=== PATIENT | female | born 1930 | race Caucasian/White ===

== ENCOUNTER 2018-05-08 00:07 | Outpatient (CLI) | payer MEDICARE ==
[~2018-05-08] VITALS: Ht 154.9 cm; Wt 55.8 kg
[2018-05-08] VITALS (12 sets, daily range): BP systolic 101–152; BP diastolic 33–73; Ht 154.9 cm; Wt 55.8 kg
--- NOTE | ~2018-05-08 | OP ---
PATIENT NAME: JOSE FRENCH MEDICAL RECORD: [id number] :[birth year] LOCATION:D.M2 D.2139 ADMISSION DATE:05/08/18 SURGEON: MONI BRANDON MD DATE OF OPERATION: 05/08/2018 PROCEDURES: 1. PTCA stent LAD. 2. Left heart catheterization. 3. Selective coronary angiography. 4. Left ventriculogram. INDICATION: Unstable angina and coronary artery disease. PROCEDURE IN DETAIL: After informed consent was obtained and after a detailed description of risks, benefits as well as alternative therapies, the patient elected to proceed with angiogram and angioplasty. The right radial area was prepped and draped in normal sterile fashion. The right radial artery cannulated via modified Seldinger technique with placement of 6-Niuean sheath. All catheters exchanged through this sheath. FINDINGS: The left ventriculogram was performed in standard 30-degree RESTREPO view, reveals good cardiac wall motion throughout all segments. Overall ejection fraction estimated 60%. SELECTIVE CORONARY ANGIOGRAPHY: 1. Left main is with no significant angiographic disease. 2. Left anterior descending has 90% stenosis in the mid vessel. 3. Left circumflex has 50% to 70% stenosis in the mid vessel. 4. Right coronary has moderate irregularities, but no flow-limiting stenosis. PTCA stent of the LAD: The stent used was a 3.0 x 15 mm Integrity. Result was 0% residual stenosis. OVERALL IMPRESSION: Successful percutaneous transluminal coronary angioplasty stent of the left anterior descending going from 90% initial stenosis to 0% residual. TRANSINT:[id number] Voice Confirmation ID: [id number] DOCUMENT ID: [id number] MONI BRANDON MD at 1834 CC: [id number] DICTATION DATE: 05/08/18 1436 UNDERWEAR FINISHER: 05/08/18 1526 ADM IN [place] [id number] [place] [address]
--- NOTE | ~2018-05-08 | DS ---
PATIENT:JOSE BURNETT :[birth year] MEDICAL RECORD: [id number] DISCHARGE SUMMARY ADMISSION DATE: 05/08/18 DISCHARGE DATE: 05/09/18 DIAGNOSES: 1. Angina. 2. Coronary artery disease. 3. Percutaneous transluminal coronary angioplasty and stent left anterior descending this admission. HOSPITAL COURSE: Ms. Burnett presents with unstable anginal symptomatology, found to have single-vessel disease to the LAD, underwent successful PTCA and stent of the LAD, was discharged home with the addition of aspirin and Plavix to her medical regimen. Follow up with [facility] in 1 month. TRANSINT:[id number] Voice Confirmation ID: [id number] DOCUMENT ID: [id number] MONI BRANDON MD at 1642 CC: [id number] DICTATION DATE: 05/09/18 1106 LEAD SOFTWARE ARCHITECT: 05/09/18 1231 DEP CLI 05/09/18 [id number] [place] [address]
--- NOTE | ~2018-05-08 | HEMODYNAMI ---
PATIENT:JOSE FRENCH MEDICAL RECORD: [id number] : [birth year] LOCATION:[facility] D.2139 ADMISSION DATE: 05/08/18 Generatedon:05/08/201814:38 Patient name: JOSE FRENCH Patient #: [id number] SSN: : Date of study: 05/08/2018 Page: Of Hemodynamic Procedure Report Patient Data Patient Demographics Procedure consent was obtained First Name: JOSE Gender: Female Last Name: MANOLO : 1930 Middle Initial: E Age: 87 year(s) Patient #: [id number] Race: Unknown Additional ID: [id number] Contact details Address: [address] [place] [address] State: [place] City: [place] Zip code: [address] Past Medical History Allergies Allergen Reaction Date Comments Reported Other allergy 05/08/2018 sulfa Admission Admission Data Admission Date: 05/08/2018 Admission Time: 3:02 Admit Source: Other Room #: D2139 Procedure Procedure Types Cath Procedure Diagnostic Procedure [facility] w/Coronaries PCI Procedure Coronary Stent Coronary Stent Initial Procedure Description Procedure Date Procedure Date: 05/08/2018 Procedure Start Time: 14:18 Procedure End Time: 14:32 Procedure Staff Name Function Syl Alfonso RT Scrub Frankie Stout RN Nurse Romel Andrade RN Nurse Rogerio Jade MD Performing Physician Aleja Mills RT Monitor Procedure Data Cath Procedure Fluoroscopy Diagnostic fluoroscopy Total fluoroscopy Time: 3.8 time: 3.8 min min Diagnostic fluoroscopy Total fluoroscopy dose: 290 dose: 290 mGy mGy Contrast Material Contrast Material Type Amount (ml) Isovue 300 67 Entry Location Entry Primary Successful Side Size Upsize Upsize Entry Closure Lobo ccessful Closure Location (Fr) 1 (Fr) 2 (Fr) Remarks Device Remarks Radial Right 6 Fr Mechanical artery Short Compression Estimated blood loss: 10 ml Diagnostic catheters Device Type Used For End Catheter Placement DIAGNOSTIC Platinum 110cm 5 Procedure Fr catheter ([id number]) Procedure Complications No complications Procedure Medications Medication Administration Route Dosage Oxygen etCO2 Nasal cannula 2 l/min 0.9% NaCl I.V. 100 ml/hr Heparin Flush Bag added to field 2 bags (1000units/500ml NS) Lidocaine 2% added to field 20 Radial Cocktail I.A. 1 syringe (Verapomil 2mg/Nitro 400mcg/Heparin 1500units) Versed I.V. 1 mg Fentanyl I.V. 50 mcg Heparin Bolus I.V. 4000 units Integrilin (Bolus I.V. 5 ml 2mg/ml) Plavix P.O. 600 mg Hemodynamics Rest Heart Rate: 66 (bpm) Snapshots Pre Cath Intra NCS Post Cath Vital Signs Time Heart Resp SPO2 etCO2 NIBP Rhythm Pain Sedation Rate (ipm) (%) (mmHg) (mmHg) Status Level (bpm) 13:52:16 63 27 95 10.5 120/60(95) NSR 0 (11) 10(A) , No pain 13:56:26 64 19 97 0 114/59(88) NSR 0 (11) 10(A) , No pain 14:07:11 64 17 97 0 139/46(87) NSR 0 (11) 10(A) , No pain 14:11:29 67 18 93 0 121/42(59) NSR 0 (11) 10(A) , No pain 14:15:48 60 15 98 0 113/30(51) NSR 0 (11) 10(A) , No pain 14:20:02 61 20 95 0 105/31(59) NSR 0 (11) 9(A) , No pain 14:24:13 62 22 93 0 113/33(50) NSR 0 (11) 9(A) , No pain 14:28:27 65 19 94 0 104/43(77) NSR 0 (11) 9(A) , No pain 14:32:37 71 28 94 0 119/44(60) NSR 0 (11) 9(A) , No pain Medications Time Medication Route Dose Verified Delivered Reason Not es Effectiveness by by 14:07:18 Oxygen etCO2 2 l/min Rogerio Urena used for Nasal Yasmany Andrade RN procedure cannula 14:07:28 0.9% NaCl I.V. 100 Rogerio Romel Per physician ml/hr Yasmany Andrade RN 14:07:40 Heparin Flush added 2 bags Rogerio Beatty used for Bag to Yasmany Jade MD procedure (1000units/500ml field NS) 14:07:52 Lidocaine 2% added 20ml Rogerio Beatty for local to vial Yasmany Jade MD anesthetic field 14:15:12 Versed I.V. 1 mg Rogerio Urena for sedation Yasmany Andrade RN 14:15:17 Fentanyl I.V. 50 mcg Rogerio Urena for sedation Yasmany Andrade RN 14:22:24 Radial Cocktail I.A. 1 Rogerio Beatty for (Verapomil syringe Yasmany Jade MD vasodilation 2mg/Nitro 400mcg/Hepari 14:26:24 Heparin Bolus I.V. 4000 Rogerio Urena for josé miguel ified units Yasmany Andrade RN anticoagulation with dr jade 14:28:33 Integrilin I.V. 5 ml Rogerio angel Was mitali 5 (Bolus 2mg/ml) Yasmany Andrade RN antiplatelet ml of therapy vial 14:37:01 Plavix P.O. 600 mg Rogerio Andrade RN antiplatelet therapy Procedure Log Time Note 13:19:53 Admit Source: Other 13:20:15 Diagnostic Cath status Elective 13:20:18 Romel Andrade RN sent for patient. Start room use. 13:20:19 Time tracking: Regular hours (M-F 7:00 - 5:00) 13:20:24 Plan of Care:Hemodynamics will remain stable., Cardiac rhythm will remain stable., Comfort level will be maintained., Respiratory function will remain adequate., Patient/ family verbilizes understanding of procedure., Procedure tolerated without complication., Recovers from procedure without complications.. 13:20:31 Warm blankets applied, and chantal hugger turned on for patient comfort. 13:20:31 Patient received from Med II to CCL 2 Alert and oriented. Tansferred to table in Supine position. 13:20:32 Correct patient and procedure confirmed by team. 13:51:04 Signed procedure consent form obtained from patient. 13:51:05 ECG and BP/O2 sat monitors applied to patient. 13:51:07 Vital chart was started 13:51:09 Baseline sample Acquired. 13:51:22 Rhythm: sinus rhythm 13:51:24 Full Disclosure recording started 13:51:36 H&P Date Dictated: 05/08/2018 Within 30 days and on chart.. 13:51:38 Pre-procedure instructions explained to patient. 13:51:40 Family in patients room. 13:51:42 Patient NPO since Midnight. 13:51:53 Patient allergic to Other allergysulfa 13:51:57 Is the patient allergic to Iodine/contrast media? No. 13:51:58 Was the patient premedicated? Yes 13:52:00 Is patient on blood thinner?No 13:52:01 Patient diabetic? No. 13:52:04 Snore? No 13:52:05 Sleep apnea? No 13:52:11 Airway obstruction? No ? 13:52:14 Dentures? Yes ? 13:52:23 IV patent on arrival in left forearm with 0.9% NaCl at KVO. 13:52:28 Lab results completed and on chart. 13:52:34 Right Radial & Right Groin area was prepped with chlora-prep and draped in sterile fashion 13:52:36 Sharps counted by scrub and verified by R.N. 13:52:36 Alarms reviewed by R. N. 13:52:37 Physician paged 13:57:35 Zero performed for pressure channel P1 13:58:15 IV left hand D/C'd due to infiltration. 13:58:29 IV started by Romel Andrade RN inleft antecubital with a 22 gauge IV catheter with 0.9% NaCl at KVO. 14:07:18 Oxygen 2 l/min etCO2 Nasal cannula was administered by Romel Andrade RN; used for procedure; 14:07:28 0.9% NaCl 100 ml/hr I.V. was administered by Romel Andrade RN; Per physician; 14:07:40 Heparin Flush Bag (1000units/500ml NS) 2 bags added to field was administered by Rogerio Jade MD; used for procedure; 14:07:52 Lidocaine 2% 20ml vial added to field was administered by Rogerio Jade MD; for local anesthetic; 14:07:55 Use device set Radial Dx or PCI 14:07:57 ACIST Syringe (35114) opened to sterile field. 14:07:58 Bag Decanter () opened to sterile field. 14:07:58 Medline Cath Pack ([id number]) opened to sterile field. 14:07:59 DIAGNOSTIC WIRE .035 260cm J wire (130697) opened to sterile field. 14:08:00 ACIST Manifold (31710) opened to sterile field. 14:08:00 ACIST Hand Control (08726) opened to sterile field. 14:08:01 Tegaderm 4 x 4 (1626W) opened to sterile field. 14:08:02 MBrace Wrist Support ([id number]) opened to sterile field. 14:08:03 NEEDLE Cook 21G 4cm Radial (O55196) opened to sterile field. 14:08:05 SHEATH 6Fr Prelude Radial ([id number]) opened to sterile field. 14::44 Physician arrived 14::45 Final Timeout: patient, procedure, and site verified with staff and physician. All members of the team are in agreement. 14::45 --------ALL STOP TIME OUT------ 14:13:48 Right Radial & Right Groin site verified by team. 14:13:51 Physical assessment completed. ASA score P 2 - A patient with mild systemic disease as per Rogerio Jade MD. 14:13:56 Sedation plan: IV Moderate Sedation Medication:Versed, Fentanyl 14:15:12 Versed 1 mg I.V. was administered by Romel Andrade RN; for sedation; 14:15:17 Fentanyl 50 mcg I.V. was administered by Romel Andrade RN; for sedation; 14:18:44 Procedure started. 14:18:51 Local anesthetic to right radial artery with Lidocaine 2% by Rogerio Jade MD.INITIAL ACCESS ONLY 14:21:10 A 6 Fr Short sheath was inserted into the Right Radial artery 14:21:20 A DIAGNOSTIC Platinum 110cm 5 Fr catheter (172672) was advanced over the wire and used for Procedure. 14:22:02 LV angiography performed. 14:22:24 Radial Cocktail (Verapomil 2mg/Nitro 400mcg/Heparin 1500units) 1 syringe I.A. was administered by Rogerio Jade MD; for vasodilation; 14:22:54 LV gram done using RESTREPO 14:23:16 EF : 60 % 14:23:20 RCA angiography performed. 14:26:24 Heparin Bolus 4000 units I.V. was administered by Romel Andrade RN; for anticoagulation; verified with dr jade 14:26:32 LCA angiography performed. 14:26:33 Catheter removed. 14::36 Proceeding to intervention. 14::56 XBc3 advanced. 14:28:03 6 Fr XBC3 guide catheter was inserted over the wire 14::33 Integrilin (Bolus 2mg/ml) 5 ml I.V. was administered by Romel Andrade RN; for antiplatelet therapy; Wasted 5 ml of vial 14::35 CHOICE PT Extra Support 182cm wire ([id number]) opened to sterile field. 14::35 INFLATOR Merit BasixCompak (GF0585) opened to sterile field. 14:28:47 Wire advanced across lesion. 14:29:32 Place stent Inflation Number: 1 A INTEGRITY RX 3.0 x 15 stent ([id number]) was prepped and advanced across the Mid LAD. The stent was deployed at 13 KEAGAN for 0:00 (min:sec). 14:30:30 TR BAND Standard ([id number]) opened to sterile field. 14:30:41 Guide catheter removed. 14:30:41 Wire removed. 14:30:52 Sheath removed intact; hemostasis achieved with Mechanical Compression to the Right Radial artery. 14:30:56 Procedure ended.(Physican Out) 14:31:08 Fluoroscopy time 03.80 minutes. 14:31:12 Fluoroscopy dose: 290 mGy 14:31:12 Flurop Dose total: 290 14:31:16 Contrast amount:Isovue 300 67ml. 14:31:21 TR band inflated with 11cc of air. 14:31:23 Insertion/operative site no bleeding no hematoma. 14:31:24 Post Procedure Pulses reassessed and unchanged 14:31:26 Post-procedure physical assessment completed. ASA score P 2 - A patient with mild systemic disease as per Rogerio Jade MD. 14:31:29 Estimated blood loss: 10 ml 14:31:31 Post procedure instruction explained to patient.Patient verbalizes understanding. 14:31:43 Procedure type changed to Cath procedure, Diagnostic procedure, LHC, LHC w/Coronaries, PCI procedure, Coronary Stent, Coronary Stent Initial 14:32:00 Procedure and supply charges have been captured, reviewed, submitted and are correct. 14:32:20 Procedure Complication : No complications 14:32:23 See physician's report for complete and final results. 14:32:23 Vital chart was stopped 14:32:25 Report given to Pre/Post Procedure Room. 14:32:28 Patient transfered to Pre/Post Procedure Room with Stretcher. 14:32:31 Full Disclosure recording stopped 14:32:31 Procedure ended. 14:32:34 End room use (Document Last) 14:32:43 ACC-PCI Only Patient was given prescriptions, or instructed by Rogerio Jade MD to start/continue the following medications upon discharge: Plavix 14:37:01 Plavix 600 mg P.O. was administered by Romel Andrade RN; for antiplatelet therapy; Intervention Summary Intervention Notes Time ActionType Lesion and Equipment Action# Pressure Duration Attributes Used 14:29:32 Place stent Mid LAD INTEGRITY RX 1 13 00:00 3.0 x 15 stent ([id number]) Device Usage Item Name Manufacture Quantity Catalog Number Hospital Part Current M inimal Lot# / Charge Number Stock Stock Serial# Code ACIST Syringe Acist 1 80014 259307 777208 556509 2 0 (77554) Medical Systems Inc Medline Cath Cardinal 1 [id number] 907975 26846 778852 5 [facility] ([id number]) Bag Decanter Microtek 1 2002S 224529 44154 444800 5 (2001S) Medical Inc. DIAGNOSTIC WIRE St Mario 1 002344 662417 212199 808800 3 0 .035 260cm J wire (145674) ACIST Hand Acist 1 40144 565559 183380 833003 5 Control (43963) [employer] Inc ACIST Manifold Acist 1 71249 758290 345757 094877 5 (53934) Medical Systems Inc Tegaderm 4 x 4 3M 1 1626W 314703 211799 984690 5 (1626W) MBrace Wrist Advanced 1 140-0250-00 286280 87312 403765 5 Support Vascular ([id number]) Dynamics NEEDLE Cook 21G Cook Medical 1 R34280 743461 451905 831310 5 4cm Radial (U78682) SHEATH 6Fr Merit 1 [id number] 601532 021920 782880 5 Prelude Radial Medical ([id number]) DIAGNOSTIC Terumo 1 55-4524 089307 043063 899067 5 Platinum 110cm 5 Fr catheter (571030) INFLATOR Merit Merit 1 WT4087 856698 039487 119277 1 5 Scodix (BY6315) CHOICE PT Extra [place] 1 [id number] 587962 980481 040162 5 Support 182cm Scientific wire ([id number]) INTEGRITY RX Medtronic 1 [id number] 607392 706114 328777 5 [id number] 3.0 x 15 stent ([id number]) TR BAND Terumo 1 [id number] 043864 754724 981667 4 0 Standard ([id number]) Signature Audit [place] Stage Time Signature Unsigned Intra-Procedure 05/08/2018 Aleja Mills 2:38:49 PM RT(R) Signatures Monitor : Aleja Mills Signature : RT Date : Time : [address] [address]
[2018-05-08] MEDS ORDERED: PLAVIX75 MG (00:17)
[2018-05-08] MEDS ORDERED: LISINOPRIL2.5 MG PO (00:17)
[2018-05-08] MEDS ORDERED: TIROSINT13 MCG (00:17)
[2018-05-08] MEDS ORDERED: ASPIRIN81 MG (00:17)
[2018-05-08] MEDS ORDERED: PRAVACHOL20 MG (00:17)
[2018-05-08] MEDS ORDERED: TOPROL XL25 MG (00:18)
[2018-05-08] MEDS ORDERED: FUROSEMIDE10 MG/M1 (00:18)
[2018-05-08 00:34] LABS: BASOPHILS 0 % (0-2); EOSINOPHILS 0 % (0-7); HEMATOCRIT 37.8 % (36.0-48.0); HEMOGLOBIN 12.5 g/dL (12-16); IMMATURE GRANULOCYTES 0.2 % (0-5); LYMPHOCYTES 23.8 % (15-50); MCH 29.3 pg (26.0-34.0); MCHC 33.1 g/dL (31.0-37.0); MCV 88.7 fL (80.0-100.0); MEAN PLATELET VOLUME 10.6 fL (7.4-10.4); PLATELET COUNT 188 10x3/uL (130-400); RBC 4.26 10x6/uL (4.00-5.40); RDW 13.3 % (11.5-14.5); WBC 8.3 10x3/uL (4.8-10.8)
[2018-05-08 00:40] LABS: APTT 26.8 SECONDS (22.8-39.4); INR 0.95 (0.85-1.17); PROTIME 12.3 SECONDS (11.6-15.0)
[2018-05-08 00:45] LABS: ALBUMIN 3.6 g/dL (3.4-5.0); ALKALINE PHOSPHATASE 66 U/L (46-116); ALT (SGPT) 29 U/L (10-68); BILIRUBIN - TOTAL 0.23 mg/dL (0.2-1.3); CALC OSMOLALITY 286 mosm/kg (275-300); CARBON DIOXIDE 21.8 mmol/L (21.0-32.0); CHLORIDE - SERUM 105 mmol/L (98-107); CREATININE - SERUM 1.7 mg/dL (0.6-1.3); GLUCOSE 161 mg/dL (74-106); POTASSIUM - SERUM 4.4 mmol/L (3.5-5.1); PROTEIN - SERUM 7.5 g/dL (6.4-8.2); SODIUM 138 mmol/L (136-145); UREA NITROGEN 36 mg/dL (7-18); eGFR NON AFRICAN AMERICAN 30 mL/min (90-120)
[2018-05-08 00:57] LABS: CKMB 1.2 U/L (0.0-3.6); CREATINE KINASE 46 UL (21-215); PRO BNP 916 pg/mL (0-450); TROPONIN-I < 0.017 ng/mL (0.000-0.060)
[2018-05-08] MEDS ORDERED: LASIX20 MG PO (03:57)
[2018-05-08 09:27] LABS: BASOPHILS 0.1 % (0-2); EOSINOPHILS 0.1 % (0-7); HEMATOCRIT 34.4 % (36.0-48.0); HEMOGLOBIN 11.1 g/dL (12-16); IMMATURE GRANULOCYTES 0.2 % (0-5); LYMPHOCYTES 19.4 % (15-50); MCH 29.1 pg (26.0-34.0); MCHC 32.3 g/dL (31.0-37.0); MCV 90.1 fL (80.0-100.0); MEAN PLATELET VOLUME 11.1 fL (7.4-10.4); MONOCYTES 12.4 % (2-11); NEUTROPHILS 67.8 % (40-80); PLATELET COUNT 163 10x3/uL (130-400); RBC 3.82 10x6/uL (4.00-5.40); RDW 13.3 % (11.5-14.5)
[2018-05-08 09:28] LABS: WBC 10.5 10x3/uL (4.8-10.8)
[2018-05-08 09:44] LABS: ANION GAP 12.2 mmol/L (8-16); CALCIUM 8.3 mg/dL (8.5-10.1); CARBON DIOXIDE 21.5 mmol/L (21.0-32.0); CREATININE - SERUM 1.5 mg/dL (0.6-1.3); POTASSIUM - SERUM 4.7 mmol/L (3.5-5.1)
[2018-05-09] VITALS: BP 129/41
[2018-05-09 04:00] VITALS: BP 121/42
[2018-05-09 05:21] LABS: BASOPHILS 0.3 % (0-2); EOSINOPHILS 1.8 % (0-7); HEMATOCRIT 34.3 % (36.0-48.0); HEMOGLOBIN 10.8 g/dL (12-16); IMMATURE GRANULOCYTES 0.1 % (0-5); LYMPHOCYTES 22.5 % (15-50); MCH 28.7 pg (26.0-34.0); MCHC 31.5 g/dL (31.0-37.0); MCV 91.2 fL (80.0-100.0); MONOCYTES 10.3 % (2-11); RBC 3.76 10x6/uL (4.00-5.40); RDW 13.9 % (11.5-14.5)
[2018-05-09 05:23] LABS: PLATELET COUNT 127 10x3/uL (130-400); WBC 7.1 10x3/uL (4.8-10.8)
[2018-05-09 05:39] LABS: ANION GAP 12.4 mmol/L (8-16); CALCIUM 7.8 mg/dL (8.5-10.1); CARBON DIOXIDE 21.3 mmol/L (21.0-32.0); CREATININE - SERUM 1.4 mg/dL (0.6-1.3); POTASSIUM - SERUM 4.7 mmol/L (3.5-5.1)
[2018-05-09 08:40] VITALS: BP 156/56
[2018-05-09 11:52] VITALS: BP 137/50
[2018-05-09] MEDS ORDERED: PLAVIX75 MG PO (14:59)
[2018-05-09 15:23] VITALS: BP 133/52
== END 2018-05-09 16:20 | disposition home or self-care (01) ==
LOC: OBSVTIME → D.ER 00:07 → D.CATH 00:07 → OBSVTIME 03:02 → D.EDHOLD 03:02 → D.ER 03:02 → D.M2 03:02 → D.EDHOLD 03:10 → D.M2 03:10 → D.ER 03:52 → EDSTATUS 11:00 → D.CATH 05-09 16:20 → D.M2 05-09 16:20
PROVIDERS: Family Medicine; Internal Medicine Interventional Cardiology
DX: I25.110 Atherosclerotic heart disease of native coronary artery with unstable angina pectoris (principal); I10 Essential (primary) hypertension; E78.5 Hyperlipidemia, unspecified; Z01.812 Encounter for preprocedural laboratory examination

== ENCOUNTER 2018-05-16 23:14 | Emergency (ER) | payer MEDICARE ==
[~2018-05-16] VITALS: Ht 154.9 cm; Wt 55.8 kg
[~2018-05-16 23:14] MED LIST: ASPIRIN81 MG; FUROSEMIDE10 MG/M1; LASIX20 MG PO; LISINOPRIL2.5 MG PO; PLAVIX75 MG; PLAVIX75 MG PO; PRAVACHOL20 MG; TIROSINT13 MCG; TOPROL XL25 MG
[2018-05-16 23:18] VITALS: Ht 154.9 cm; Wt 55.8 kg
[2018-05-17 00:09] LABS: BASOPHILS 0.3 % (0-2); EOSINOPHILS 0.5 % (0-7); HEMATOCRIT 38.8 % (36.0-48.0); HEMOGLOBIN 12.6 g/dL (12-16); IMMATURE GRANULOCYTES 0.6 % (0-5); LYMPHOCYTES 30.6 % (15-50); MCH 29.5 pg (26.0-34.0); MCHC 32.5 g/dL (31.0-37.0); MCV 90.9 fL (80.0-100.0); MEAN PLATELET VOLUME 10.5 fL (7.4-10.4); MONOCYTES 14.8 % (2-11); NEUTROPHILS 53.2 % (40-80); RBC 4.27 10x6/uL (4.00-5.40); RDW 13.9 % (11.5-14.5); WBC 11.4 10x3/uL (4.8-10.8)
[2018-05-17 00:15] LABS: PLATELET COUNT 194 10x3/uL (130-400)
[2018-05-17 00:30] LABS: APTT 29.3 SECONDS (22.8-39.4); INR 0.93 (0.85-1.17); PROTIME 12.1 SECONDS (11.6-15.0)
[2018-05-17 00:31] LABS: ALBUMIN 3.2 g/dL (3.4-5.0); ALKALINE PHOSPHATASE 53 U/L (46-116); ALT (SGPT) 18 U/L (10-68); BILIRUBIN - TOTAL 0.17 mg/dL (0.2-1.3); CALC OSMOLALITY 285 mosm/kg (275-300); CALCIUM 8.4 mg/dL (8.5-10.1); CARBON DIOXIDE 23.2 mmol/L (21.0-32.0); CHLORIDE - SERUM 105 mmol/L (98-107); CREATININE - SERUM 1.6 mg/dL (0.6-1.3); D-DIMER-QUANTITATIVE 1.05 ug/mLFEU (0.20-0.54); GLUCOSE 90 mg/dL (74-106); POTASSIUM - SERUM 4.6 mmol/L (3.5-5.1); PROTEIN - SERUM 7.1 g/dL (6.4-8.2); SODIUM 137 mmol/L (136-145); UREA NITROGEN 45 mg/dL (7-18); eGFR NON AFRICAN AMERICAN 32 mL/min (90-120)
[2018-05-17 00:40] LABS: CKMB 0.7 U/L (0.0-3.6); CREATINE KINASE 27 UL (21-215); PRO BNP 978 pg/mL (0-450)
[2018-05-17 00:42] LABS: TROPONIN-I < 0.017 ng/mL (0.000-0.060)
[2018-05-17 05:05] VITALS: BP 110/85
== END 2018-05-17 05:06 | disposition home or self-care (01) ==
LOC: D.ER 23:14
PROVIDERS: Family Medicine
DX: R07.9 Chest pain, unspecified (principal); E07.9 Disorder of thyroid, unspecified; I50.9 Heart failure, unspecified; R00.1 Bradycardia, unspecified; I44.0 Atrioventricular block, first degree